=== PATIENT | female | born 1995 | race Caucasian/White ===

== ENCOUNTER 2016-07-13 13:28 | Emergency (ER) | payer SELFPAY ==
[2016-07-13 13:55] VITALS: BP 112/83
--- NOTE | 2016-07-13 14:56 | UC ---
Knee Pain HPI - HPI Summary HPI Summary: 20 yo female c/o bilat ant knee pain s/p slip / fall one week ago. Pain and swelling persist Had to call in a sick day for work on Tuesday. Wants to be checked today, b/c still hurts. No p/d/w. No neck or back pain. Fell onto hands but they are ok. No prior hx knee injury. - History of Current Complaint Chief Complaint: UCLowerExtremity Stated Complaint: KNEE INJURY BOTH FELL Time Seen by Provider: 07/13/16 14:50 Hx Obtained From: Patient Hx Last Menstrual Period: 06/30/16 Onset/Duration: Sudden Onset Severity Initially: Moderate Severity Currently: Moderate - Allergies/Home Medications Allergies/Adverse Reactions: Allergies Allergy/AdvReac Type Severity Reaction Status Date / Time No Known Allergies Allergy Unverified 06/29/13 16:13 Home Medications: Home Medications Amphetamine-Dextroamphetamine [Adderall 10 mg-] 20 mg 07/13/16 [History] PMH/Surg Hx/FS Hx/Imm Hx Previously Healthy: Yes - Surgical History Surgical History: None - Social History Alcohol Use: None Substance Use Type: None Smoking Status (MU): Light Every Day Tobacco Smoker Review of Systems Constitutional: Negative Skin: Bruising Eyes: Negative ENT: Negative Respiratory: Negative Cardiovascular: Negative Gastrointestinal: Negative Genitourinary: Negative Motor: Other - see hpi Neurovascular: Negative Musculoskeletal: Negative Neurological: Negative Psychological: Negative All Other Systems Reviewed And Are Negative: Yes Physical Exam Triage Information Reviewed: Yes Appearance: Well-Nourished Vital Signs: Initial Vital Signs Temp 98.6 F 07/13/16 13:48 Pulse 111 07/13/16 13:48 Resp 16 07/13/16 13:48 BP 112/83 07/13/16 13:48 Pulse Ox 97 07/13/16 13:48 Vital Signs Reviewed: Yes Eye Exam: Normal ENT Exam: Normal Neck exam: Normal Neck: Positive: Supple, Nontender, No Lymphadenopathy Respiratory Exam: Normal Cardiovascular Exam: Normal Abdominal Exam: Normal Musculoskeletal Exam: Other - bilat knees + tender and swelling. R knee - + tender mostly infrapatellar. L knee - + tender mostly inferior aspect of patella itself. No post knee tenderness. No calf tenderness. Feet ok, good pulses. + distal nvi. Neurological Exam: Normal - nonfocal, grossly normal Knee Pain Course/Dx - Course Course Of Treatment: Xray Bilat knee - see [facility] reports. No new problems in ccc. Rx ibuprofen. Work note. Jr wrap (pt may acquire an otc jr pull on wrap). F/u pcp apprx 2 weeks for recheck. Seek medical attention sooner for worse or new problems. Questions answered as posed. Considered below diff dx' s. - Differential Dx/Diagnosis Provider Diagnoses: Bilat ant knee contusions. R patella traumatic bursitis ( consider mild L traumatic bursitis as well) Discharge - Discharge Plan Condition: Stable Disposition: HOME Prescriptions: Ibuprofen TAB* [Motrin TAB* 600 MG] 600 mg PO Q8H PRN #30 tab PRN Reason: Pain Patient Education Materials: Knee Bursitis (ED), Contusion in Adults (ED) Forms: *Work Release Referrals: Eva Walls PA [Primary Care Provider] - Additional Instructions: Follow up with your primary care provider in about two weeks for recheck. Seek medical attention sooner for worse or new problems. Jr as needed for discomfort and swelling. Elevate legs as much as possible.
--- NOTE | 2016-07-13 15:13 | RAD ---
HISTORY: Ongoing knee pain and anterior swelling bilaterally, trauma COMPARISONS: None VIEWS: 5, frontal views of both knees, frontal oblique views of both knees, axial views of both knees, lateral views of the left knee and of the right knee FINDINGS: Right: BONE DENSITY: Normal. BONES: There is no displaced fracture. JOINTS: There is no arthropathy. There is no suprapatellar joint effusion or lipohemarthrosis. ALIGNMENT: There is no dislocation. The alignment is anatomic. SOFT TISSUES: Unremarkable. Left: BONE DENSITY: Normal. BONES: There is no displaced fracture. JOINTS: There is no arthropathy. There is no suprapatellar joint effusion or lipohemarthrosis. ALIGNMENT: There is no dislocation. The alignment is anatomic. SOFT TISSUES: Unremarkable. OTHER FINDINGS: None. IMPRESSION: NO ACUTE OSSEOUS INJURY BILATERALLY. IF SYMPTOMS PERSIST, RECOMMEND REPEAT IMAGING.
== END 2016-07-13 15:30 | disposition home or self-care (01) ==
LOC: UCEAST 13:28
DX: S80.02XA Contusion of left knee, initial encounter (principal); S80.01XA Contusion of right knee, initial encounter; W19.XXXA Unspecified fall, initial encounter; Y93.9 Activity, unspecified; Y92.9 Unspecified place or not applicable; M70.41 Prepatellar bursitis, right knee; F17.210 Nicotine dependence, cigarettes, uncomplicated
CPT/HCPCS: 99212; G0463

== ENCOUNTER 2016-08-02 13:17 | Emergency (ER) | payer BC ==
[2016-08-02 14:17] VITALS: BP 126/67
--- NOTE | 2016-08-02 14:58 | UC ---
FLU HPI - HPI Summary HPI Summary: 20 female presents with complaints of cough, sore throat, body aches, nasal congestion, chills and headache that began to worsen yesterday 08/01/16. Patient states she has had the sore throat for the past week but the rest of her symptoms just began yesterday/2 days ago. She has not been around any known sick contacts. Has not had flu shot. Tried taking a sinus OTC medication and ibuprofen, with last dose around 12 with some relief. Has not taken her temperature but does admit to hot/cold chills. States the body aches are her biggest complaint however after taking ibuprofen it is her throat and cough that bother her. Admits to intermittent productive cough. Denies nausea/vomiting , diarrhea, difficulty breathing, SOB and chest pain. Denies PMHx. - History of Current Complaint Chief Complaint: UCGeneralIllness Stated Complaint: SORE THROAT,BODY ACHES Time Seen by Provider: 08/02/16 14:09 Hx Obtained From: Patient Hx Last Menstrual Period: 07/28/16 ?: No Onset/Duration: Sudden Onset, Lasting Days, Still Present, Worse Since Severity Currently: Mild Severity Initially: Moderate Pain Intensity: 3 Pain Scale Used: 0-10 Numeric Associated Signs & Symptoms: Positive: Fever, Myalgia, Cough, Sore Throat, Nasal Congestion, Headache - Allergy/Home Medications Allergies/Adverse Reactions: Allergies Allergy/AdvReac Type Severity Reaction Status Date / Time No Known Allergies Allergy Unverified 06/29/13 16:13 Home Medications: Home Medications Amphetamine MIXED SALT TAB* [Adderall TAB*] 20 mg PO DAILY 08/02/16 [History Confirmed 08/02/16] Ibuprofen TAB* [Motrin TAB* 600 MG] 600 mg PO PRN 08/02/16 [History] PMH/Surg Hx/FS Hx/Imm Hx Endocrine History Of: Denies: Diabetes Cardiovascular History Of: Denies: Hypertension Respiratory History Of: Denies: COPD GI/ History Of: Denies: Gastroesophageal Reflux - Surgical History Surgical History: None - Family History Known Family History: Positive: Cardiac Disease - Social History Alcohol Use: Rare Substance Use Type: None Smoking Status (MU): Light Every Day Tobacco Smoker Amount Used/How Often: 5 CIG/DAY - Immunization History Most Recent Influenza Vaccination: did not have Vaccination Up to Date: Yes Review of Systems Constitutional: Fever, Chills, Fatigue Skin: Negative Eyes: Negative ENT: Sore Throat, Ear Ache, Nasal Discharge Respiratory: Cough Cardiovascular: Negative Gastrointestinal: Negative Genitourinary: Negative Motor: Negative Neurovascular: Negative Musculoskeletal: Myalgia Neurological: Headache Psychological: Negative All Other Systems Reviewed And Are Negative: Yes Physical Exam Triage Information Reviewed: Yes Appearance: Well-Appearing - smiling and standing upon entry, No Pain Distress, Well-Nourished Vital Signs: Initial Vital Signs Temp 99.1 F 08/02/16 14:10 Pulse 100 08/02/16 14:10 Resp 18 08/02/16 14:10 BP 126/67 08/02/16 14:10 Pulse Ox 97 08/02/16 14:10 tachycardia noted Vital Signs Reviewed: Yes Eyes: Positive: Conjunctiva Clear ENT: Positive: Hearing grossly normal, Pharynx normal, Pharyngeal erythema, TMs normal, Tonsillar swelling, Other: - airway patent, uvula midline. no sign of peritonsillar abscess. Negative: Nasal congestion, Nasal drainage, Tonsillar exudate, Trismus, Muffled/hoarse voice Dental: Negative: Percussion Tenderness @, Cervical Lymphadenopathy Neck: Positive: Supple, Nontender, No Lymphadenopathy Respiratory: Positive: Chest non-tender, Lungs clear, Normal breath sounds, No respiratory distress, No accessory muscle use Cardiovascular: Positive: RRR, No Murmur, Pulses Normal Abdominal Exam: Normal Abdomen Description: Positive: Nontender, No Organomegaly, Soft Bowel Sounds: Positive: Present Musculoskeletal Exam: Normal Musculoskeletal: Positive: Strength Intact, ROM Intact, No Edema Neurological Exam: Normal Psychological Exam: Normal Skin Exam: Normal Flu Course/Dx - Course Course Of Treatment: strep and flu culture obtained due to patient's complaint of symptoms. both came back negative. patient will be treated for viral URI. prescribed flonase and tessalon pearls. encouraged fluids and rest. iburpofen/ tylenol alternating every 4 hours for fever and aches. chloraseptic spray and salt water swishes for throat. aware of worsening signs and symptoms to watch out for. follow up with pcp. - Differential Dx/Diagnosis Differential Diagnosis/HQI/PQRI: Bronchitis, Influenza, Upper Respiratory Infection, Other - strep pharyngitis Provider Diagnoses: URI, Pharyngitis Discharge - Discharge Plan Condition: Stable Disposition: HOME Prescriptions: Benzonatate CAP* [Tessalon 100 MG CAP*] 100 mg PO TID #15 cap Fluticasone NASAL SPRAY 50MCG* [Flonase NASAL SPRAY 50MCG*] 2 spray BOTH NARES DAILY #1 btl Patient Education Materials: Upper Respiratory Infection (ED), Pharyngitis (ED) Forms: *Work Release Referrals: Eva Walls PA [Primary Care Provider] - Additional Instructions: Take prescribed nasal spray to help with congestion. Take prescribed cough medication at night to help with sleeping and cough. Continue Tylenol/Ibuprofen alternating for fever and body aches. Chloraseptic spray over the counter to soothe sore throat. Swish with salt water is also recommended. Drink plenty of fluids and get plenty of rest. If symptoms worsen or do not improve please seek medical attention. Follow up with primary carer provider.
== END 2016-08-02 15:06 | disposition home or self-care (01) ==
LOC: UCEAST 13:17
DX: J02.9 Acute pharyngitis, unspecified (principal); F17.210 Nicotine dependence, cigarettes, uncomplicated
CPT/HCPCS: 87502; 87651; 99212; G0463

== ENCOUNTER 2016-11-17 15:32 | Emergency (ER) | payer BC ==
[2016-11-17 15:52] VITALS: BP 131/66
--- NOTE | 2016-11-17 16:59 | UC ---
Throat Pain/Nasal Brett HPI - HPI Summary HPI Summary: 21 y/o female presents to the urgent care c/o cough and sore throat for the past month. Pt reports It started with nasal congestion w/ green nasal discharge, then the cough developed. She recently moved into her apartment, where there is a lot of mold that she hasn't been able to removed. She thinks that is what triggered her cough. Pt denies fever, SOB, chest pain, N/V/D. - History of Current Complaint Chief Complaint: UCRespiratory Stated Complaint: COUGH,CONGEST,SORE THROAT Time Seen by Provider: 11/17/16 16:44 Hx Obtained From: Patient Hx Last Menstrual Period: 2 WEEKS AGO ?: No Onset/Duration: Gradual Onset, Lasting Weeks, Still Present Severity: Moderate Pain Intensity: 7 - sore throat Pain Scale Used: 0-10 Numeric Cough: Productive - green phlemg Associated Signs & Symptoms: Positive: Dysphagia, Nasal Discharge - green discharge. Negative: Fever, Vomiting, Rash - Allergies/Home Medications Allergies/Adverse Reactions: Allergies Allergy/AdvReac Type Severity Reaction Status Date / Time No Known Allergies Allergy Verified 11/17/16 15:52 PMH/Surg Hx/FS Hx/Imm Hx Previously Healthy: Yes - Surgical History Surgical History: None - Family History Known Family History: Positive: Cardiac Disease - Social History Occupation: Employed Full-time Lives: With Family Alcohol Use: None Substance Use Type: Marijuana Smoking Status (MU): Current Every Day Smoker Type: Cigarettes Amount Used/How Often: 1 PACK/WEEK - Immunization History Most Recent Influenza Vaccination: did not have Vaccination Up to Date: Yes Review of Systems Constitutional: Negative Skin: Negative Eyes: Negative ENT: Sore Throat Respiratory: Cough - productive cough Cardiovascular: Negative Gastrointestinal: Negative Genitourinary: Negative Motor: Negative Neurovascular: Negative Musculoskeletal: Negative Neurological: Negative Psychological: Negative All Other Systems Reviewed And Are Negative: Yes Physical Exam Triage Information Reviewed: Yes Appearance: Well-Appearing, No Pain Distress, Well-Nourished, Thin Vital Signs: Initial Vital Signs Temp 99.1 F 11/17/16 15:47 Pulse 93 11/17/16 15:47 Resp 16 11/17/16 15:47 BP 131/66 11/17/16 15:47 Pulse Ox 100 11/17/16 15:47 Vital Signs Reviewed: Yes Eye Exam: Normal Eyes: Positive: Conjunctiva Clear - PERRLA. EOMI, fundi grossly intact ENT: Positive: Normal ENT inspection, Hearing grossly normal, Pharyngeal erythema - no exudate present, Nasal congestion, Nasal drainage - clear discharge, TMs normal, Tonsillar swelling. Negative: Tonsillar exudate Dental Exam: Normal Neck exam: Normal Neck: Positive: Supple, Nontender, No Lymphadenopathy Respiratory Exam: Normal Respiratory: Positive: Chest non-tender, Lungs clear, Normal breath sounds Cardiovascular Exam: Normal Cardiovascular: Positive: RRR, No Murmur, Pulses Normal, Brisk Capillary Refill Abdominal Exam: Normal Abdomen Description: Positive: Nontender, No Organomegaly, Soft. Negative: CVA Tenderness (R), CVA Tenderness (L) Bowel Sounds: Positive: Present Musculoskeletal Exam: Normal Musculoskeletal: Positive: Strength Intact, ROM Intact, No Edema Neurological Exam: Normal Psychological Exam: Normal Skin Exam: Normal Throat Pain/Nasal Course/Dx - Course Course Of Treatment: 21 y/o female presents to the urgent care c/o cough and sore throat for the past month. Pt reports It started with nasal congestion w/ green nasal discharge, then the cough developed. She recently moved into her apartment, where there is a lot of mold that she hasn't been able to removed. She thinks that is what triggered her cough. Pt denies fever, SOB, chest pain , N/V/D. HX obtained. PE abnormal findings: ENT: Positive: Normal ENT inspection, Hearing grossly normal, Pharyngeal erythema - no exudate present, Nasal congestion, Nasal drainage - clear discharge, TMs normal, Tonsillar swelling. Negative: Tonsillar exudate. Rapid strep ordered: negative. Pt D/C home, Rx Flonase and Loratadine to alleviate symptoms of rhinosinusitis. Bensonate PO for cough and Ibuprofen for pharyngtis. Pt advised to increase fluid intake and removed mold from her apt. Pt understood and agreed and left the clinic ambulating. - Differential Dx/Diagnosis Differential Diagnosis/HQI/PQRI: Laryngitis, Pharyngitis, Sinusitis, URI Provider Diagnoses: 1- Pharyngitis. 2-Rhinosinusitis Discharge - Discharge Plan Condition: Stable Disposition: HOME Prescriptions: Benzonatate CAP* [Tessalon 100 MG CAP*] 100 mg PO TID PRN #15 cap PRN Reason: Cough Fluticasone NASAL SPRAY 50MCG* [Flonase NASAL SPRAY 50MCG*] 2 spray BOTH NARES DAILY #1 btl Ibuprofen TAB* [Motrin TAB* 600 MG] 600 mg PO Q6H PRN #20 tab PRN Reason: Sore Throat Loratadine [Claritin 10 MG CAP] 10 mg PO DAILY #30 cap Patient Education Materials: Pharyngitis (ED), Rhinosinusitis (ED) Referrals: Eva Walls PA [Primary Care Provider] - 1 Week Additional Instructions: Please take medications as directed., increase fluid intake and rest. Use Flonase as directed to help drain fluid. Take Ibuprofen for sore throat . Avoid allergen, specially the mold at yout apt. Please f/u with your PCP if symptoms do not improve.
== END 2016-11-17 17:18 | disposition home or self-care (01) ==
LOC: UCEAST 15:32
DX: J02.9 Acute pharyngitis, unspecified (principal); J32.9 Chronic sinusitis, unspecified; F17.210 Nicotine dependence, cigarettes, uncomplicated
CPT/HCPCS: 87651; 99212; G0463

== ENCOUNTER 2018-01-17 17:23 | Emergency (ER) | payer OTHER, MEDICAID ==
[2018-01-17 17:44] VITALS: BP 121/67
--- NOTE | 2018-01-17 18:14 | UC ---
Throat Pain/Nasal Brett HPI - HPI Summary HPI Summary: 22 y/o female presents to the urgent care c/o sore throat, nasal congestion w/ clear discharge, BENNETT, body aches and a dry cough for the past 4 days. Pt reports pain w/ swallowing is 4/10. She has not taking anything to alleviate symptoms due to her . Pt denies fever, but feels hot a t times, She also denies SOB, wheezing, chest pain, abdominal pain, N/V/D. - History of Current Complaint Chief Complaint: UCRespiratory Stated Complaint: ST,COLD,HEADACHE Time Seen by Provider: 01/17/18 18:07 Hx Obtained From: Patient Hx Last Menstrual Period: 2 WEEKS AGO Onset/Duration: Gradual Onset, Lasting Days - 4 days Severity: Mild Pain Intensity: 4 Pain Scale Used: 0-10 Numeric Cough: Nonproductive Associated Signs & Symptoms: Positive: Dysphagia, Sinus Discomfort, Nasal Discharge - Epiglottits Risk Factors Epiglottis Risk Factors: Negative - Allergies/Home Medications Allergies/Adverse Reactions: Allergies Allergy/AdvReac Type Severity Reaction Status Date / Time No Known Allergies Allergy Verified 01/17/18 17:39 Home Medications: Home Medications NK [No Home Medications Reported] 01/17/18 [History Confirmed 01/17/18] PMH/Surg Hx/FS Hx/Imm Hx Previously Healthy: Yes - Pt denies PMHX - Surgical History Surgical History: None - Family History Known Family History: Positive: Cardiac Disease - Social History Occupation: Employed Full-time Lives: With Family Alcohol Use: None Substance Use Type: None Smoking Status (MU): Current Every Day Smoker Type: Cigarettes Amount Used/How Often: 1 cig/ day - Immunization History Most Recent Influenza Vaccination: did not have Vaccination Up to Date: Yes Review of Systems Constitutional: Chills, Fatigue, Other - body aches Skin: Negative Eyes: Negative ENT: Sore Throat, Nasal Discharge - clear, Sinus Congestion Respiratory: Cough - dry Cardiovascular: Negative Gastrointestinal: Negative Genitourinary: Negative Motor: Negative Neurovascular: Negative Musculoskeletal: Negative Neurological: Headache Psychological: Negative Is Patient Immunocompromised?: No All Other Systems Reviewed And Are Negative: Yes Physical Exam - Summary Physical Exam Summary: VITAL SIGNS: Reviewed. GENERAL: Patient is a well developed and nourished female who is sitting comfortable in the examining table. Patient is not in any acute respiratory distress. HEAD AND FACE: No signs of trauma. No ecchymosis, hematomas or skull depressions. No sinus tenderness. EYES: PERRLA, EOMI x 2, No injected conjunctiva, no nystagmus. No photophobia. EARS: Hearing grossly intact. Ear canals and tympanic membranes are within normal limits. Nose: edematous and erythematous nasal mucosa w/ clear nasal discharge. MOUTH: Positive no erythema, no tonsillar enlargement. Uvula in midline. NECK: Supple, trachea is midline, Positive anterior cervical lymphadenopathy, no JVD, no carotid bruit, no c-spine tenderness, neck with full ROM. No meningeal signs, no Kernig's or brudzinskis signs. CHEST: Symmetric, no tenderness at palpation LUNGS: Clear to auscultation bilaterally. No wheezing or crackles. CVS: Regular rate and rhythm, S1 and S2 present, no murmurs or gallops appreciated. ABDOMEN: Soft, non-tender. No signs of distention. No rebound no guarding, and no masses palpated. Bowel sounds are normal. EXTREMITIES: FROM in all major joints, no edema, no cyanosis or clubbing. NEURO: Alert and oriented x 3. No acute neurological deficits. Speech is normal and follows commands. SKIN: Dry and warm Triage Information Reviewed: Yes Vital Signs: Initial Vital Signs Temp 99.0 F 01/17/18 17:40 Pulse 93 01/17/18 17:40 Resp 18 01/17/18 17:40 BP 121/67 01/17/18 17:40 Pulse Ox 100 01/17/18 17:40 Throat Pain/Nasal Course/Dx - Course Course Of Treatment: 22 y/o female presents to the urgent care c/o sore throat, nasal congestion w/ clear discharge, BENNETT, body aches and a dry cough for the past 4 days. Pt reports pain w/ swallowing is 4/10. She has not taking anything to alleviate symptoms due to her . Pt denies fever, but feels hot a t times, She also denies SOB, wheezing, chest pain, abdominal pain, N/V/ D. Hx obtained. Pt w/ probably a viral syndrome on examination. Pt with pharyngitis on examination. Rapid strep ordered, result: negative. Pt advised to take Tyelnol PO PO to alleviates symptoms. Pt Advised on hand washing and wear a mask to avoid spreading. Pt advised to rest, increase fluid intake, eat well and avoid strenuous exercise. If symptoms do not improve or worsen advised to return to the urgent care or f/u with her PCP for further evaluation and treatment. Pt understood and agreed with plan of care. - Differential Dx/Diagnosis Differential Diagnosis/HQI/PQRI: Influenza, Laryngitis, Pharyngitis, Sinusitis, URI Provider Diagnoses: 1-Viral syndrome Discharge - Sign-Out/Discharge Documenting (check all that apply): Patient Departure - D/c home All imaging exams completed and their final reports reviewed: No Studies - Discharge Plan Condition: Stable Disposition: HOME Patient Education Materials: Viral Syndrome (ED) Forms: *Work Release Referrals: Moon Tomas NP [Primary Care Provider] - 2 Days Additional Instructions: 1-Please take Tylenol PO q6-8hrs prn as instructed after meals to alleviate body aches , sore throat. Increase fluid intake, eat well, rest and avoid strenuous exercise 2-If symptoms do not improve or worsen please return to the urgent care or f/u with your PCP in 3 days for further evaluation and treatment. - Billing Disposition and Condition Condition: STABLE Disposition: Home
== END 2018-01-17 19:20 | disposition home or self-care (01) ==
LOC: UCEAST 17:23
DX: B34.9 Viral infection, unspecified (principal); F17.210 Nicotine dependence, cigarettes, uncomplicated
CPT/HCPCS: 87651; 99211; G0463

== ENCOUNTER 2018-07-18 10:09 | Inpatient (IN) | payer OTHER, BC, MEDICAID ==
--- NOTE | 2018-07-18 14:34 | HP ---
General Information - Reason for Visit Advanced dilation, full term - General Information Maternal Age: 22 Grav: 2 Para: 0 SAB: 0 IEA: 1 Estimated Due Date: 07/23/18 Determined By: Early Ultrasound Maternal Blood Type and Rh: O Negative - Results this Serology/RPR Result: Non-Reactive Rubella Result: Non-Immune HBsAg Result: Negative HIV Result: Negative GBS Culture Result: Negative Past Medical History Pertinent Past Medical History: See Records - LSIL pap, hx drug abuse , hx depression Pertinent Past Surgical History: None Pertinent Family History: Non-Contributory - Antepartal Records Antepartal Records: Reviewed, Uncomplicated Review of Systems Constitutional: Comfortable CV Complaint: No Respiratory: Shortness of Breath: No Gastrointestinal: No Nausea/Vomiting, Normal Bowel Movement Genitourinary: No Dysuria, No Bleeding, No Leaking Fluid Musculoskeletal: No Complaint, No Epigastric Pain Neurological: No Headache, No Visual Changes Movement: Normal Exam Allergies/Adverse Reactions: Allergies No Known Allergies Allergy (Verified 01/17/18 17:39) Vital Signs 07/18/18 11:03 Temperature 98.8 F Pulse Rate 94 Respiratory 18 Rate Blood Pressure 124/65 (mmHg) O2 Sat by Pulse 97 Oximetry - Measurements Height: 5 ft 6 in Weight: 240 lb Weight in lbs: [id number] Body Mass Index (BMI): 38.7 Pre- Weight: 180 lb Weight Gained This : 60 lbs and 0 ozs - Exam Breast: Breast Exam Deferred CVA: No CVA Tenderness Extremities: No Edema Heart: Normal Rhythm/Heart Sounds HEENT: No Significant Findings Lungs: Clear Bilaterally Rectal: Rectal Exam Deferred Reflexes: DTR 2+ Thyroid: No Thyromegaly - Abdominal Exam Abdomen Exam: Fundal Height Consistent with Dates - Ultrasound/Biophysical Profile Ultrasound Status: Not Done Targeted Exam Findings Estimated Weight: 8lbs 4oz Cervical Exam: 5cm Effacement: 90% Station: -1 Presenting Part: Vertex Membrane Status: AROM Amniotic Fluid Evaluation: Clear Bleeding/Discharge: Bloody Show EFM Findings - External Monitor Findings Baseline Heart Rate: 145 External Monitor Findings: Accelerations Present, No Pattern of Variable or Late Decelerations, Variability Moderate, Baseline Stable Contractions: Irregular, Mild, < 45 Seconds Assessment/Plan - Assessment 22 y.o. , 39w2d EGA, augmentation for advanced dilation - Plan Plan: Admit - Anticipate Vaginal Delivery - Date/Time of Admission Date of Admission: 07/18/18 Time of Admission: 13:00
[2018-07-18] MEDS ORDERED: Buffered Lidocaine 1% SYRIN* 1 ML/SYRINGE INTRADERM ONE (14:35)
[2018-07-18] MEDS ORDERED: Lactated Ringers 1000 ML Bag* 1,000 ML IV ONE (14:35)
[2018-07-18] MEDS ORDERED: Lactated Ringers 1000 ML Bag* 1,000 ML IV SCH ×2 (15:00→19:00)
[2018-07-18] MEDS ORDERED: Glycerin ADULT SUPP PR PRN (18:21)
[2018-07-18] MEDS ORDERED: Witch Hazel PAD* JAR TOPICAL PRN (18:21)
[2018-07-18] MEDS ORDERED: OXYTOCIN* 10 UNITS/ML 1 ML VIAL IM ONE (18:21)
[2018-07-18] MEDS ORDERED: Acetaminophen TAB* 325 MG PO PRN (18:21)
[2018-07-18] MEDS ORDERED: Dibucaine 1% 28.35 GM TUBE PR PRN (18:21)
--- NOTE | 2018-07-18 18:25 | PROCNOTE ---
[facility] OB: Delivery Note - Delivery A Date of : 07/18/18 Time of : 17:51 Sex: Male Weight at : 8 lb 4 oz Score 1 Minute: 9 Score 5 Minutes: 9 Gestational Age in Weeks and Days at Delivery: 39 Weeks and 2 Days Delivery Method: Spontaneous Vaginal Labor: Induced Amniotic Fluid: Clear Estimated Blood Loss: 250 Anesthesia/Analgesia: None Delivered By: Lidia Kirkland - Nursery Level of Nursery: Regular/Bedside - Perineum Perineal Injury: Perineal Laceration, 1st Degree Perineal Repair: By Delivering Practioner - Events Delivery Events of Note: Pitocin Only After Delivery
[2018-07-18] MEDS ORDERED: RHO D Immune Globulin (HUMAN)* 300 MCG = 1,500 I.U. INJ IM ONE (18:30)
[2018-07-18] MEDS ORDERED: Lidocaine 1% INJ* 10 MG/ML 30 ML SDV ONE (19:01)
[2018-07-18] MEDS ORDERED: Simethicone TAB* 80 MG TAB.CHEW PO SCH (21:00)
[2018-07-18] MEDS: Ibuprofen TAB* 600 MG PO PRN (21:35)
[2018-07-18] MEDS: Docusate CAP* 100 MG PO SCH (21:35)
[2018-07-19] MEDS: Ibuprofen TAB* 600 MG PO PRN ×3 (03:47→17:17)
[2018-07-19] MEDS ORDERED: Ferrous Gluconate TAB* 324 MG TAB PO SCH (09:00)
[2018-07-19 09:42] LABS: ABS Basophils 0.1 10^3/ul (0-0.2); ABS Eosinophils 0 10^3/ul (0-0.6); ABS Lymphocytes 2.7 10^3/ul (1.0-4.8); ABS Monocytes 0.7 10^3/ul (0-0.8); ABS Neutrophils 11.8 10^3/ul (1.5-7.7); ABS Nucleated RBC 0 10^3/ul; Eosinophil % 0.3 %; Hematocrit 31 % (33-41); Hemoglobin 10.7 g/dL (12.0-16.0); Lymphocyte % 17.7 %; Mean Corpuscular HGB Conc 35 g/dL (31-36); Mean Corpuscular Hemoglobin 31 pg (27-31); Mean Corpuscular Volume 88 fL (80-97); Mean Platelet Volume 7.4 fL (7.4-10.4); Nucleated Red Blood Cells % 0.1; Platelet Count 270 10^3/uL (150-450); Red Blood Count 3.49 10^6 /uL (3.70-4.87); Red Cell Distribution Width 13 % (10.5-15); White Blood Count 15.4 10^3/uL (3.5-10.8)
[2018-07-19] MEDS: Docusate CAP* 100 MG PO SCH ×3 (10:24→23:54)
[2018-07-20] MEDS: Docusate CAP* 100 MG PO SCH ×2 (07:58→14:44)
[2018-07-20] MEDS: Ibuprofen TAB* 600 MG PO PRN ×2 (07:58→14:44)
[2018-07-20 08:44] VITALS: BP 110/60
[2018-07-20] MEDS ORDERED: Varicella Virus Vaccine Live* 0.5 ML VIAL SUBCUT ONE (12:00)
[2018-07-20] MEDS ORDERED: Measles, Mumps,Rubella VACC* 0.5 ML/VIAL SUBCUT ONE (12:00)
[2018-07-20] MEDS ORDERED: Tetan/Diph/Pertus SYR(Tdap)* 0.5 ML SYR(BOOSTRIX) use SYR IM ONE (12:00)
== END 2018-07-20 15:10 | disposition home or self-care (01) | DRG 807 ==
LOC: MCHOBOUT 10:09 → MCHOB 12:55
PROVIDERS: ADMIT Midwife; ATTEND Midwife
PROC: 4A1HXCZ Monitoring of Products of Conception, Cardiac Rate, External Approach (ICD-10-PCS; principal; 2018-07-18)
PROC: 10E0XZZ Delivery of Products of Conception, External Approach (ICD-10-PCS; 2018-07-18)
PROC: 0U7C7ZZ Dilation of Cervix, Via Natural or Artificial Opening (ICD-10-PCS; 2018-07-18)
PROC: 0HQ9XZZ Repair Perineum Skin, External Approach (ICD-10-PCS; 2018-07-18)
DX: O70.0 First degree perineal laceration during delivery (principal); Z37.0 Single live birth; Z3A.39 39 weeks gestation of pregnancy; Z67.41 Type O blood, Rh negative
CPT/HCPCS: 36415; 85025; 90707; 90715; A9270-GY; J2590

== ENCOUNTER 2019-03-29 15:54 | Emergency (ER) | payer BC, OTHER, MEDICAID ==
--- OUTSIDE RECORDS SUMMARY | 2019-03-29 16:02 | XMS REPORT | Continuity of Care Document ---
:1995 External Reference #:[id number] Author Name Moon Tomas N.P. 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 20mg Caps ER 24HR Desogestrel-Ethinyl Take One Tablet 28tabs Moon Tomas, 01/25/2017 Estradiol By Mouth Every N.P. 0.15-30mg-mcg Day Tablets Amphetamine-Dextroamp 1 by mouth twice 60tabs Moon Tomas, 2014 hetamine a day N.P. 10mg Tablets Immunizations CPT Code Status Date Vaccine Lot # [id number] Refused 01/11/2019 Influenza Vac, Quadrivalent, Split, 0.5mL Dosage, Im Use Vital Signs Date Vital Result Comment 03/06/2019 1:40pm Body Temperature 97.9 F Weight 229.38 lb Heart Rate 105 /min BP Systolic 110 mmHg BP Diastolic 72 mmHg O2 % BldC Oximetry 97 % 01/11/2019 1:04pm Body Temperature 98.2 F Weight 227.00 lb Heart Rate 108 /min BP Systolic 104 mmHg BP Diastolic 80 mmHg O2 % BldC Oximetry 97 % Results Description No Information Available Procedures Description No Information Available Medical Devices Description No Information Available Encounters Type Date Location Provider Dx Diagnosis Office Visit 01/11/2019 [place] Moon Tomas, F90.0 Attn-defct 1:15p N.P. hyperactivity disorder, predom inattentive type Z28.21 Immunization not carried out because of patient refusal Office Visit 11/30/2018 10:30a [place] Moon Tomas, F90.0 Attn-defct N.P. hyperactivity disorder, predom inattentive type Z13.31 Encounter for screening for depression Assessments Date Code Description Provider 03/06/2019 F90.0 Attention-deficit hyperactivity disorder, Moon Tomas , N.P. predominantly inattentive type 01/11/2019 F90.0 Attention-deficit hyperactivity disorder, Moon Tomas , N.P. predominantly inattentive type 01/11/2019 Z28.21 Immunization not carried out because of Moon Tomas N.P. patient refusal 11/30/2018 F90.0 Attention-deficit hyperactivity disorder, Moon Tomas , N.P. predominantly inattentive type 11/30/2018 Z13.31 Encounter for screening for depression Moon Tomas N.P. Plan of Treatment Future Appointment(s):06/05/2019 1:30 pm - Moon Tomas, N.Ira. at [id number] - Moon Tomas, N.P.F90.0 Attention-deficit hyperactivity disorder, predominantly inattentive typeComments:increasing short acting to bid has been helpful - working FT and working all diff shifts she will cont same and follow- up 3 mo Functional Status Description No Information Available Mental Status Description No Information Available Referrals Description No Information Available
[2019-03-29 16:10] VITALS: BP 131/79
--- NOTE | 2019-03-29 16:11 | UC ---
Ear Complaint HPI - HPI Summary HPI Summary: 23 yo female presents with RIGHT EAR pain. She tells me that over the last 2-3 days she has noticed a small bump just inside her right ear canal. Today she was picking at it and it started bleeding. She is concerned for infection. She denies fever, inner ear pain, or changes in hearing. - History of Current Complaint Chief Complaint: UCEar Stated Complaint: CLOGGED EAR Time Seen by Provider: 03/29/19 16:11 Hx Obtained From: Patient Hx Last Menstrual Period: 1 1/2 years ago Onset/Duration: Gradual Onset Severity Initially: Mild Severity Currently: Mild Pain Intensity: 4 Pain Scale Used: 0-10 Numeric - Allergies/Home Medications Allergies/Adverse Reactions: Allergies Allergy/AdvReac Type Severity Reaction Status Date / Time No Known Allergies Allergy Verified 03/29/19 16:11 Home Medications: Home Medications Dextroamphetamine/Amphetamine [Adderall 10 mg-] 10 mg PO DAILY 03/29/19 [ History Confirmed 03/29/19] Dextroamphetamine/Amphetamine [Adderall Xr 20 mg Capsule] 20 mg PO DAILY [History Confirmed 03/29/19] PMH/Surg Hx/FS Hx/Imm Hx - Additional Past Medical History Additional PMH: ADHD - Surgical History Surgical History: None - Family History Known Family History: Positive: Cardiac Disease - Social History Lives: With Family Alcohol Use: None Substance Use Type: None Smoking Status (MU): Current Some Day Smoker Type: Cigarettes Amount Used/How Often: pack a week - Immunization History Most Recent Influenza Vaccination: did not have Most Recent Pneumonia Vaccination: na Vaccination Up to Date: Yes Review of Systems All Other Systems Reviewed And Are Negative: No Constitutional: Positive: Negative Skin: Positive: Negative Eyes: Positive: Negative ENT: Positive: Ear Ache Respiratory: Positive: Negative Cardiovascular: Positive: Negative Gastrointestinal: Positive: Negative Neurological: Positive: Negative Psychological: Positive: Negative Physical Exam - Summary Physical Exam Summary: GENERAL: NAD. WDWN. No pain distress. SKIN: No rashes, sores, lesions, or open wounds. HEENT: Head: AT/NC Eyes: EOM intact. Conjunctiva clear without inflammation or discharge. Ears: Hearing grossly normal. TMs intact, no bulging, erythema, or edema. RIGHT EAR: Just inside the canal at the 8 o'clock position there is a small non-occlusive soft tissue pustule with dried blood. Mildly TTP. No active drainage. Nose: Nasal mucosa pink and moist. NTTP maxillary and frontal sinus. Throat: Posterior oropharynx without exudates, erythema, or tonsillar enlargement. Uvula midline. NECK: Supple. Nontender. No lymphadenopathy. NEURO: Alert. PSYCH: Age appropriate behavior. Triage Information Reviewed: Yes Vital Signs: Initial Vital Signs Temp 98 F 03/29/19 16:03 Pulse 108 03/29/19 16:03 Resp 16 03/29/19 16:03 BP 131/79 03/29/19 16:03 Pulse Ox 97 03/29/19 16:03 Vital Signs Reviewed: Yes Ear Complaint Course/Dx - Course Course Of Treatment: Suspect cyst or simple pustule of skin. Offered drainage today, but pt declined. Advised to monitor the area and should improve with time. - Differential Dx/Diagnosis Provider Diagnosis: Skin pustule Discharge ED - Sign-Out/Discharge Documenting (check all that apply): Patient Departure All imaging exams completed and their final reports reviewed: No Studies - Discharge Plan Condition: Stable Disposition: HOME Referrals: Moon Tomas NP [Primary Care Provider] - Additional Instructions: The area in your ear appears to be a small cyst or pimple/zit that should resolve in a few days on it's own. Otherwise, you ear and ear drum appear healthy and normal. - Billing Disposition and Condition Condition: STABLE Disposition: Home
== END 2019-03-29 16:20 | disposition home or self-care (01) ==
LOC: UCEAST 15:54
DX: L08.9 Local infection of the skin and subcutaneous tissue, unspecified (principal)
CPT/HCPCS: 99211; G0463